=== PATIENT | female | born 1995 | race Caucasian/White ===

== ENCOUNTER → 2017-11-12 | Outpatient (CLI) | payer MEDICAID, OTHER | LOC: HPND 09:01 | DX: O09.292 Supervision of pregnancy with other poor reproductive or obstetric history, second trimester (principal); O12.12 Gestational proteinuria, second trimester | CPT/HCPCS: 76816 ==

== ENCOUNTER → 2017-12-10 | Outpatient (CLI) | payer OTHER | LOC: HPND 08:04 | DX: O09.292 Supervision of pregnancy with other poor reproductive or obstetric history, second trimester (principal) | CPT/HCPCS: 76816 ==

== ENCOUNTER 2018-01-09 10:51 | Emergency (ER) | payer OTHER ==
[2018-01-09 11:13] VITALS: BP 126/72; PULSE 130; RESP 18; TEMP 98.1
--- NOTE | 2018-01-09 11:39 | PD ---
HPI Travel History International Travel<30 Days: No Contact w/Intl Traveler<30Days: No History of Present Illness HPI Patient is a 22 year old at 36 and 5/7 weeks gestation, [place] 02/08/2018, who presents to the OB ED with contractions since 7am which have become more intense since her US visit just now. She denies leakage of fluid, vaginal bleeding, and contractions. She feels baby moving regularly. She denies AVERY/N/V/D /fever/sick contacts/SOB/calf pain/dizziness/seeing spots. OB care is with [facility] (Dr. Anderson). She states she plans to deliver in [place]. Para: 2 : 3 Miscarriage: 0 : 0 History Past Medical History Narrative Medical Hx PreE Hx kidney stones Hx post- depression anemia Medical History: Denies Significant Hx Obstetric History Obstetric History G1: 2011 [id number] at 42 wk G2: 2013 8 lb 1 oz at 38 wk, induced for HTN G3: current Past Surgical History Surgical History: No Previous Surgery Family History Family History: Negative Social History Alcohol Use: No Tobacco Use: Yes (1 PPD pre-) Substance Abuse: No Allergies-Medications (Allergen,Severity, Reaction): Coded Allergies: No Known Allergies (Unverified , 01/09/18) Review of Systems General / Constitutional: No: Fever, Chills Eyes: No: Diploplia, Blurred Vision HENT: No: Headaches, Vertigo Cardiovascular: No: Chest Pain or Discomfort, Palpitations Respiratory: No: Cough, Short of Breath Gastrointestinal: Abdominal Pain, No: Nausea, Vomiting, Diarrhea Genitourinary: No: Urgency, Dysuria Musculoskeletal: No: Weakness, Edema Skin: No Rash, No Itching Neurologic: No: Weakness, Syncope Psychiatric: No: Anxiety, Depression Physical Exam Narrative GENERAL: Well-nourished, well-developed patient. SKIN: Warm and dry. HEAD: Normocephalic and atraumatic. EYES: No scleral icterus. No injection or drainage. ENT: No nasal drainage noted. Mucous membranes pink. Airway patent. NECK: Supple, trachea midline. No JVD. CARDIOVASCULAR: Regular rate and rhythm without murmurs, gallops, or rubs. RESPIRATORY: Breath sounds equal bilaterally. No accessory muscle use. ABDOMEN/GI: Abdomen soft, non-tender, bowel sounds present, no rebound, no guarding. No abdominal or back pain on palpation. GENITOURINARY: External Genitalia: intact and normal in appearance Cervix: 0/30/-3 Uterine Contractions: none FHT's: Category:1 Baseline: 130 Reactive: 180 Variability:mod Decels: absent EXTREMITIES: No cyanosis or edema. BACK: Nontender without obvious deformity. No CVA tenderness. NEUROLOGICAL: Awake and alert. Motor and sensory grossly within normal limits. Five out of 5 muscle strength in all muscle groups. Normal speech. Data Data Vital Signs Reviewed: Yes Orders Orders Vital Signs (Adult) .ON ADMISSION (01/09/18 10:59) ^ Labor Status (01/09/18 10:59) ^ Non Stress Test (01/09/18 10:59) ^ Hydration (01/09/18 10:59) Labs unknown GBS MDM Medical Record Reviewed: Yes Narrative Course / MDM Patient presents at 36 and 1/7 weeks for labor check. Cervix closed, No CTX, Cat 1 tracing. MR reviewed, normal 24hr urine, and normal VS today. Counseled on preE and labor signs, to d/c to home. [facility] Intrauterine : Category 1 tracing No CTX Routine care GBS unknown Hx PreE: no signs today, to discharge home CARMELITA Garcia Diagnosis Diagnosis: Primary Impression: False labor before 37 completed weeks of gestation Disposition: 01 DISCHARGE HOME Condition: Stable Patient Instructions: Abdominal Pain in (ED), Preeclampsia (ED) Brabie Tipton MD R2 Jan 09, 2018 11:39
== END 2018-01-09 11:57 | disposition home or self-care (01) ==
LOC: HOBED 10:51
DX: O47.03 False labor before 37 completed weeks of gestation, third trimester (principal); Z3A.36 36 weeks gestation of pregnancy
CPT/HCPCS: 59025

== ENCOUNTER → 2018-01-09 | Outpatient (CLI) | payer OTHER | LOC: HPND 10:22 | PROVIDERS: ATTEND Family Medicine | DX: O09.893 Supervision of other high risk pregnancies, third trimester (principal) | CPT/HCPCS: 76816 ==